=== PATIENT | male | born 2000 | race African-American/Black ===

== ENCOUNTER 2025-08-13 19:23 | Emergency (ER) | payer MEDICAID ==
[~2025-08-13] VITALS: Ht 177.8 cm; Wt 98.0 kg
[2025-08-13 19:34] VITALS: O2SAT 99
[2025-08-13 19:50] VITALS: BP 143/99; PULSE 100; RESP 18; TEMP 36.9; O2SAT 98
== END 2025-08-13 22:19 | disposition left against medical advice (07) ==
LOC: ER 19:23
DX: R05.9 Cough, unspecified (principal); R09.81 Nasal congestion; R06.02 Shortness of breath; Z53.21 Procedure and treatment not carried out due to patient leaving prior to being seen by health care provider
CPT/HCPCS: 71045; 93005